=== PATIENT | female | born 1965 | race Caucasian/White ===

== ENCOUNTER 2021-02-05 10:48 | Emergency (ER) | payer OTHER, SELFPAY ==
[~2021-02-05] VITALS: Ht 162.6 cm; Wt 108.9 kg
[2021-02-05 10:48] VITALS: BP_SYST 95
[2021-02-05] MEDS ORDERED: NACL 0.9% 1,000 ML IV ONE (11:15)
[2021-02-05] MEDS ORDERED: NOREPINEPHRINE BITARTRATE 4 MG in NS 246 ML IV ONE (11:30)
[2021-02-05 11:41] LABS: BASOPHILS # (AUTO) 0.1 K/uL (0.0-0.2); BASOPHILS % (AUTO) 0.8 % (0.0-2.0); EOSINOPHILS # (AUTO) 0.3 K/uL (0.0-0.4); EOSINOPHILS % (AUTO) 3.1 % (0.0-4.0); HEMATOCRIT 33.8 % (36-48); HEMOGLOBIN 11.1 g/dL (12.0-16.0); LYMPHOCYTES # (AUTO) 1.5 K/uL (1.0-5.5); LYMPHOCYTES % (AUTO) 16.5 % (20.5-51.5); MEAN CORPUSCULAR HEMOGLOBIN 25 pg (27-31); MEAN CORPUSCULAR HGB CONC 33 % (32-36); MEAN CORPUSCULAR VOLUME 77 fL (79.0-98.0); MONOCYTES # (AUTO) 0.8 K/uL (0.0-1.0); MONOCYTES % (AUTO) 9.6 % (1.7-9.3); NEUTROPHILS # (AUTO) 6.2 K/uL (1.8-7.7); PLATELET COUNT (AUTO) 375 K/uL (130-430); RED CELL DISTRIBUTION WIDTH 18.6 % (9.0-15.0); WHITE BLOOD COUNT (AUTO) 8.8 K/uL (4.8-10.8)
[2021-02-05 11:48] LABS: CALCIUM 9.6 mg/dL (8.4-11.0); CREATININE 0.99 mg/dL (0.55-1.30); POTASSIUM 3.1 mmol/L (3.5-5.1)
[2021-02-05 11:54] LABS: ALBUMIN 2.9 g/dL (3.4-4.8); TOTAL BILIRUBIN 0.8 mg/dL (0.0-1.0)
[2021-02-05 12:36] LABS: BILIRUBIN,URINE NEGATIVE (NEGATIVE); BLOOD, URINE NEGATIVE (NEGATIVE); CLARITY/URINE CLEAR (CLEAR); COLOR,URINE YELLOW (YELLOW); GLUCOSE,URINE NEGATIVE (NEGATIVE); KETONES,URINE NEGATIVE (NEGATIVE); LEUKOCYTE ESTERASE ,URINE NEGATIVE (NEGATIVE); NITRITE, URINE NEGATIVE (NEGATIVE); PH,URINE 6.5 (5.0-8.0); PROTEIN URINE 2+ (NEGATIVE)
[2021-02-05 12:58] LABS: BACTERIA,URINE FEW /HPF (None Seen); RBC,URINE 0-3 /HPF (0-3); WBC,URINE 0-3 /HPF (0-3)
[2021-02-05 12:59] LABS: MUCUS,URINE 1+ /LPF (None Seen)
[2021-02-05] MEDS ORDERED: POTASSIUM CHLORIDE 20 MEQ TAB.PRT.SR PO ONE (14:00)
[2021-02-05] MEDS ORDERED: MAG HYDROX/AL HYDROX/SIMETH 30 ML, LIDOCAINE VISCOUS 2% 15ML (PO) 15 ML, DICYCLOMINE HC... PO ONE ×3 (14:00)
[2021-02-05] MEDS ORDERED: KETOROLAC TROMETHAMINE 30 MG VIAL IVP ONE (14:00)
[2021-02-05] MEDS ORDERED: AMOX500C2 PO (15:04)
[2021-02-05] MEDS ORDERED: BENI20 PO (15:09)
[2021-02-05] MEDS ORDERED: LANS30CA53 PO (15:09)
[2021-02-05] MEDS ORDERED: ROSU10TA2 PO (15:09)
[2021-02-05] MEDS ORDERED: CLAR250T12 PO (15:09)
[2021-02-05] MEDS ORDERED: DEXAMETHASONE SOD PHOSPHATE 10 MG/ML VIAL ONE (16:02)
[2021-02-05 16:09] LABS: INR 1.4 (0.8-1.2)
[2021-02-05] MEDS ORDERED: DEXAMETHASONE SOD PHOSPHATE 10 MG/ML VIAL IVP ONE (16:15)
[2021-02-05 16:20] LABS: AMYLASE 31 U/L (0-100); FREE T4 (FREE THYROXINE) 1.4 ng/dl (0.8-1.5); LACTATE DEHYDROGENASE 246 U/L (81-234); LIPASE 149 U/L (73-393); THYROID STIMULATING HORMONE 2.94 uIu/mL (0.36-3.74)
[2021-02-05 17:07] LABS: C-REACTIVE PROTEIN QUANT 13.9 mg/dL (0-0.5)
[2021-02-05 17:11] LABS: ACETONE, SERUM NEGATIVE (NEGATIVE)
[2021-02-05 18:36] VITALS: BP_SYST 111
== END 2021-02-05 18:36 | disposition short-term general hospital (02) ==
LOC: SED 10:48
DX: G93.89 Other specified disorders of brain (principal); R16.0 Hepatomegaly, not elsewhere classified; Z20.822 Contact with and (suspected) exposure to COVID-19; Z79.899 Other long term (current) drug therapy
CPT/HCPCS: 36415; 70450; 71045; 74176; 76376; 76700; 80053; 81000; 82009; 82150; 83605; 83615; 83690; 84439; 84443; 84484; 84703; 85025; 85610; 85730; 86140; 87426; 93005; 96361; 96374; 96375; 99285; J1100; J1885; J2001; J7030

== ENCOUNTER 2021-05-21 16:24 | Inpatient (IN) | payer OTHER, SELFPAY ==
[~2021-05-21] VITALS: Ht 162.6 cm; Wt 99.8 kg
[~2021-05-21 16:24] MED LIST: BENI20 PO; CLAR250T12 PO; FAMO20TA8 PO; LANS30CA53 PO; NEU300 PO; POLY17PO4 PO; ROSU10TA2 PO; SULF1TAB48 PO; [UNRECOGNIZED DRUG - CODE] PO
[2021-05-21 16:25] VITALS: BP_SYST 127
--- NOTE | 2021-05-21 16:25 | NUR ---
Patient to ER bed 1 to gown for evaluation. Side rails up. Report given to SEAN SALDANA.
[2021-05-21] MEDS ORDERED: NACL 0.9% 2,000 ML IV ONE (16:45)
--- NOTE | 2021-05-21 17:20 | NUR ---
ER at bedside examining patient.
[2021-05-21 17:40] LABS: HEMOGLOBIN 7.8 g/dL (12.0-16.0); RED CELL DISTRIBUTION WIDTH 18.7 % (9.0-15.0)
[2021-05-21 17:48] LABS: HEMATOCRIT 23.4 % (36-48); MEAN CORPUSCULAR HEMOGLOBIN 29 pg (27-31); MEAN CORPUSCULAR HGB CONC 33 % (32-36); MEAN CORPUSCULAR VOLUME 86 fL (79.0-98.0); PLATELET COUNT (AUTO) 188 K/uL (130-430); RED BLOOD CELL COUNT(AUTO) 2.72 MIL/uL (4.2-6.2)
[2021-05-21 17:54] LABS: ACETONE, SERUM NEGATIVE (NEGATIVE)
[2021-05-21 17:58] LABS: INR 1.5 (0.8-1.2); PROTHROMBIN TIME 15.5 SECS (9.5-12.5)
[2021-05-21 17:59] LABS: ANION GAP 6 (5-15); CALCIUM 8.2 mg/dL (8.4-11.0); CHLORIDE 93 mmol/L (98-107); CREATININE 0.43 mg/dL (0.55-1.30); GLUCOSE 147 mg/dL (70-99); POTASSIUM 3.2 mmol/L (3.5-5.1); SODIUM SERUM 122 mmol/L (136-145); UREA NITROGEN, BLOOD 7 mg/dL (8-21)
[2021-05-21 18:01] LABS: WHITE BLOOD COUNT (AUTO) 1.4 K/uL (4.8-10.8)
[2021-05-21 18:03] LABS: BAND % (MANUAL) 0 % (0-6); LYMPHOCYTES % (MANUAL) 54 % (20-46)
[2021-05-21 18:04] LABS: BASOPHILS % (MANUAL) 0 % (0-2); EOSINOPHILS % (MANUAL) 2 % (0-7); MONOCYTES % (MANUAL) 19 % (0-11)
[2021-05-21 18:05] LABS: ALANINE AMINOTRANSFERASE 11 U/L (12-78); ALBUMIN 2.1 g/dL (3.4-4.8); ASPARTATE AMINOTRANSFERASE 9 U/L (10-37); TOTAL BILIRUBIN 0.8 mg/dL (0.0-1.0)
[2021-05-21] MEDS ORDERED: NACL 0.9% 1,000 ML IV ONE (18:30)
[2021-05-21] MEDS ORDERED: PIPERACILLIN/TAZOBACTAM 3.375 GM/VIAL (ZOSYN) IV ONE (19:38)
[2021-05-21] MEDS: NACL 0.9% 1,000 ML IV SCH (19:52)
[2021-05-21] MEDS: PIPERACILLIN/TAZO 3.375/DEX-IS 50 ML IV SCH (19:52)
[2021-05-21] MEDS ORDERED: VANCOMYCIN HCL 1 GM/NS PREMIX 250 ML IV ONE (20:45)
[2021-05-21] MEDS ORDERED: VANCOMYCIN HCL 1000 MG/VIAL IV ONE (20:49)
[2021-05-21 21:12] VITALS: BP_SYST 109
--- NOTE | 2021-05-21 21:12 | NUR ---
ADMISSION NOTE Received patient from ER via frederic, received report from SEAN SALDANA. Patient admitted with diagnosis of HYPOTENSION/ R/O SEPSIS. Patient oriented to hospital routine, call light, toileting and safety-patient verbalized understanding.
--- NOTE | 2021-05-21 21:20 | NUR ---
REPORT Transfer to TELE via ACLS protocol. Licensed nurse present. IV present no signs or symptoms of infiltration. Report given to RN using SBAR reporting. All safety precautions enforced.
--- NOTE | 2021-05-21 21:25 | NUR ---
ROUNDS PATIENT IN BED, AWAKE, ALERT, ORIENTED, NOT IN DISTRESS, VITALS STABLE. ADMISSION ASSESSMENT OLIVEROS AND DOCUMENED. SEE FLOWSHEET. NEEDS ATTENDED TO. SAFETY MEASURES IN PLACED. CALL LIGHT PLACED WITHIN REACH.
[2021-05-22] MEDS ORDERED: ACETAMINOPHEN 325 MG TABLET PO PRN
[2021-05-22 00:55] VITALS: BP_SYST 101
[2021-05-22] MEDS ORDERED: PIPERACILLIN/TAZOBACTAM 3.375 GM/VIAL (ZOSYN) IV ONE (04:10)
--- NOTE | 2021-05-22 05:09 | NUR ---
ONCOLOGY CONSULT Consult for Dr. Garcia was called, RE: Colon CA w/ mets SW Gene
--- NOTE | 2021-05-22 05:14 | NUR ---
ID CONSULT Consult for Dr. Qamar Castillo was called, RE r/o Sepsis ALTON Nur Faxed face sheet: [phone]
--- NOTE | 2021-05-22 05:21 | NUR ---
Nutrition Update Sanjiv Scale 16 noted. Pt admitted for Hypotension, R/O sepsis, Colon cancer w/ mets Diet: Regular BMI: 37.8 kg/m2 RD to follow per nutrition care standards.
[2021-05-22] MEDS: PIPERACILLIN/TAZO 3.375/DEX-IS 50 ML IV SCH ×3 (05:46→21:19)
[2021-05-22] MEDS: NACL 0.9% 1,000 ML IV SCH ×3 (05:46→14:11)
[2021-05-22 06:41] LABS: BASOPHILS % (AUTO) 0.8 % (0.0-2.0); EOSINOPHILS % (AUTO) 1.5 % (0.0-4.0); LYMPHOCYTES # (AUTO) 0.5 K/uL (1.0-5.5); LYMPHOCYTES % (AUTO) 40.7 % (20.5-51.5); MEAN CORPUSCULAR HEMOGLOBIN 29 pg (27-31); MEAN CORPUSCULAR HGB CONC 34 % (32-36); MEAN CORPUSCULAR VOLUME 85 fL (79.0-98.0); MONOCYTES # (AUTO) 0.3 K/uL (0.0-1.0); MONOCYTES % (AUTO) 25.2 % (1.7-9.3); NEUTROPHILS % (AUTO) 31.8 % (40.0-70.0); PLATELET COUNT (AUTO) 146 K/uL (130-430); RED BLOOD CELL COUNT(AUTO) 2.09 MIL/uL (4.2-6.2); RED CELL DISTRIBUTION WIDTH 18.8 % (9.0-15.0)
--- NOTE | 2021-05-22 06:48 | NUR ---
CLOSING NOTES PATIENT AWAKE, NO COMPLAINTS AT THIS TIME, VITALS STABLE. ALL NEEDS ATTENDED TO. CALL LIGHT PLACED WITHIN REACH.
--- NOTE | 2021-05-22 07:49 | NUR ---
OPENING NOTE Received report from security shift manager RN. Patient is alert and resting in bed. Patient on 2L NC and tolerating well. Susannah-cath running NS @ 150 mL/hr. Bed locked in lowest position and call light is within reach. Will continue to monitor.
[2021-05-22 08:00] VITALS: BP_SYST 105
[2021-05-22 08:26] LABS: ALBUMIN 1.7 g/dL (3.4-4.8); CREATININE 0.27 mg/dL (0.55-1.30); THYROID STIMULATING HORMONE 1.55 uIu/mL (0.36-3.74); TOTAL BILIRUBIN 0.7 mg/dL (0.0-1.0)
[2021-05-22 08:39] LABS: POTASSIUM 2.5 mmol/L (3.5-5.1)
[2021-05-22 09:31] LABS: NEUTROPHILS # (AUTO) 0.4 K/uL (1.8-7.7)
[2021-05-22 09:36] LABS: HEMATOCRIT 17.7 % (36-48); WHITE BLOOD COUNT (AUTO) 1.2 K/uL (4.8-10.8)
--- NOTE | 2021-05-22 10:00 | NUR ---
Spoke with Dr. Miranda Regarding K 2.5 and trending low platelets. Orders to put patient on reverse/ neutropenic isolation and K replacement. Noted and will carry out.
[2021-05-22] MEDS: KCL 20 mEq in NS 1000 mL 1,000 ML IV SCH ×2 (10:19→21:20)
--- NOTE | 2021-05-22 10:28 | NUR ---
CRITICAL LAB RESULT WAS CALLED TO DR ALLAN. DIANA ASKED TO FAX THE CRITICAL LAB RESULT TO HIS OFFICE ([phone]).
--- NOTE | 2021-05-22 10:33 | NUR ---
Paged Dr. Miranda twice at 1000 and 1025 regarding patient's Hgb of 6.0 and Hct 17.7. Awaiting call back. Take Up Supervisor requested labs be faxed to Dr. Miranda's office. Patient's sister, Natividad, called. Patient consented to give information to sister. Will continue to monitor.
--- NOTE | 2021-05-22 11:31 | NUR ---
3rd page for Dr. Miranda Paged Dr. Miranda again at 1120 for critical labs of Hgb and Hct. Awaiting call back. Stool sample taken to lab. Fluids with K running as ordered. Will continue to monitor.
[2021-05-22 11:49] VITALS: BP_SYST 130
--- NOTE | 2021-05-22 12:45 | NUR ---
CRITICAL LAB: Laboratory called with critical lab value hgb 6.0 and hct 17.7. Medical record number and patient name verified. Read back of values done. Dr. Henning notified of value. Orders for 2 units of PRBCs. Consent signed by patient. Noted and will carry out.
[2021-05-22 13:52] LABS: BILIRUBIN,URINE NEGATIVE (NEGATIVE); BLOOD, URINE NEGATIVE (NEGATIVE); CLARITY/URINE TURBID (CLEAR); COLOR,URINE YELLOW (YELLOW); GLUCOSE,URINE NEGATIVE (NEGATIVE); KETONES,URINE NEGATIVE (NEGATIVE); LEUKOCYTE ESTERASE ,URINE NEGATIVE (NEGATIVE); NITRITE, URINE POSITIVE (NEGATIVE); PROTEIN URINE NEGATIVE (NEGATIVE); UROBILINOGEN,URINE 0.2 (0.2-1.0)
[2021-05-22 14:06] LABS: BACTERIA,URINE MODERATE /HPF (None Seen); RBC,URINE 0-3 /HPF (0-3); WBC,URINE 0-3 /HPF (0-3)
[2021-05-22 15:30] VITALS: BP_SYST 101
--- NOTE | 2021-05-22 15:36 | NUR ---
Discharge Planning: DCP faxed pt referral to [facility] [id number] per CM request.
[2021-05-22 16:00] VITALS: BP_SYST 105
--- NOTE | 2021-05-22 16:10 | NUR ---
BT INITIATION: Consent signed per patient agreeing to administration of blood. Blood has been type and crossmatched. Blood sent from blood bank. Information on unit of blood checked against patient wristband at bedside by two nurses. All information matches. Patient or responsible alliance party informed of potential complications associated with blood transfusion. Informed of possible transfusion reaction symptoms. Aware of need to notify nurse at once of itching, shortness of breath, flushing, feeling of impending doom, or other symptoms not previously present. Vital signs taken within 5 minutes prior to initiation of transfusion. RN will remain with patient for first 15 minutes of transfusion at which time vital signs will be re-assessed.
--- NOTE | 2021-05-22 16:35 | NUR ---
Referral to [facility] [place], at patient/family request. All information requested sent to [phone].
[2021-05-22] MEDS: TBO-FILGRASTIM 480 MCG/0.8 ML SYRINGE SUBCUT SCH (16:37)
[2021-05-22] MEDS ORDERED: FILGRASTIM Non-Formulary 0.48 MG/VIAL SUBCUT SCH (17:00)
--- NOTE | 2021-05-22 18:30 | NUR ---
CLOSING NOTE Patient currently resting in bed. Family at bedside. Patient is currently on 2 L NC. Right chest Port-a-Cath in place and administering blood as ordered. Vital signs are stable. Bed locked in lowest position. Call light within reach. Reverse isolation precautions remain in place. Will endorse to overnight houseperson RN.
--- NOTE | 2021-05-22 19:30 | NUR ---
Opening note Received report from day shift. Pt is lying in bed. No s/s of respiratory distress. Breathing even and unlabored. IV site is intact and patent with fluids running at ordered rate. Fall and safety precautions are in place with bed in lowest position, bed alarm on, and call light within reach
[2021-05-22 20:00] VITALS: BP_SYST 106
--- NOTE | 2021-05-22 23:44 | NUR ---
Pt receiving 1 unit PRBC, vital signs stable. Pt tolerating well
[2021-05-23 01:00] VITALS: BP_SYST 98
[2021-05-23] MEDS ORDERED: AZITHROMYCIN 500 MG in NS 250 ML IV ONE (03:30)
[2021-05-23] MEDS ORDERED: AZITHROMYCIN 500 MG/VIAL (ZITHROMAX) IV ONE (05:32)
[2021-05-23] MEDS ORDERED: CEFEPIME 2 GM/VIAL (MAXIPIME) ONE (05:32)
[2021-05-23] MEDS: CEFEPIME 2 GM in D5W 100 ML IV SCH ×3 (05:43→19:47)
[2021-05-23] MEDS: KCL 20 mEq in NS 1000 mL 1,000 ML IV SCH ×2 (05:44→14:37)
--- NOTE | 2021-05-23 06:44 | NUR ---
Closing note Pt is lying in bed. No s/s of respiratory distress. Breathing even and unlabored. IV site is intact and patent with fluids running at ordered rate. Fall and safety precautions are in place with bed in lowest position, bed alarm on, and call light within reach. All needs met throughout shift
[2021-05-23 07:07] LABS: BASOPHILS % (AUTO) 0.4 % (0.0-2.0); EOSINOPHILS % (AUTO) 2.4 % (0.0-4.0); HEMATOCRIT 22.8 % (36-48); HEMOGLOBIN 7.9 g/dL (12.0-16.0); LYMPHOCYTES # (AUTO) 0.4 K/uL (1.0-5.5); LYMPHOCYTES % (AUTO) 20.5 % (20.5-51.5); MEAN CORPUSCULAR HEMOGLOBIN 29 pg (27-31); MEAN CORPUSCULAR HGB CONC 35 % (32-36); MEAN CORPUSCULAR VOLUME 85 fL (79.0-98.0); MONOCYTES # (AUTO) 0.3 K/uL (0.0-1.0); MONOCYTES % (AUTO) 18.2 % (1.7-9.3); NEUTROPHILS # (AUTO) 1.1 K/uL (1.8-7.7); PLATELET COUNT (AUTO) 132 K/uL (130-430); RED BLOOD CELL COUNT(AUTO) 2.69 MIL/uL (4.2-6.2); RED CELL DISTRIBUTION WIDTH 16.8 % (9.0-15.0)
[2021-05-23 07:40] LABS: ALANINE AMINOTRANSFERASE 10 U/L (12-78); ALBUMIN 1.6 g/dL (3.4-4.8); ANION GAP 7 (5-15); ASPARTATE AMINOTRANSFERASE 18 U/L (10-37); CALCIUM 7.4 mg/dL (8.4-11.0); CHLORIDE 102 mmol/L (98-107); GLUCOSE 92 mg/dL (70-99); SODIUM SERUM 134 mmol/L (136-145); TOTAL BILIRUBIN 0.7 mg/dL (0.0-1.0); UREA NITROGEN, BLOOD 3 mg/dL (8-21)
[2021-05-23 08:00] VITALS: BP_SYST 122
[2021-05-23 08:15] LABS: CREATININE < 0.20 mg/dL (0.55-1.30); GFR AFRICAN AMERICAN 471 mL/min (>90); POTASSIUM 2.3 mmol/L (3.5-5.1)
[2021-05-23] MEDS ORDERED: POTASSIUM CHLORIDE 20 MEQ in NS 250 ML IV ONE (08:30)
[2021-05-23] MEDS ORDERED: POTASSIUM CHLORIDE 20 MEQ TAB.PRT.SR PO ONE (08:30)
--- NOTE | 2021-05-23 08:32 | NUR ---
CONSULTATION PAGED REASON FOR CONSULTATION::HEMROIDS WAS CONSULT CALLED?Y PERSON WHO WAS NOTIFIED: CELESTINA CONSULTING PHYSICIAN:BECK DASILVA ROLL FORGER SPECIALTY:SURGEON ROLL FORGER PHONE NUMBER:[phone] REQUESTING PHYSICIAN:VENU CALDERON
[2021-05-23 08:35] LABS: TOTAL IRON BIND. CAPACITY 126 ug/dL (250-450)
[2021-05-23 09:08] LABS: WHITE BLOOD COUNT (AUTO) 1.8 K/uL (4.8-10.8)
--- NOTE | 2021-05-23 09:40 | NUR ---
ORDERS SPOKE WITH DR Qamar SALAZAR, NEW ORDERS RECEIVED
--- NOTE | 2021-05-23 11:32 | NUR ---
Dietitian Recommendations *Recommend continue regular diet. Provide snacks in between meals. *Declined nutritional supplement drink. *Encourage PO intake. *Consider supplemental nutrition support Please see Nutritional Assessment for details. MARIE MERCADO
[2021-05-23 12:00] VITALS: BP_SYST 115
--- NOTE | 2021-05-23 12:39 | NUR ---
Spoke w/ Isma at [facility] [place] [facility]unlikely there will be a bed available today for the patient. They will notify us if bed is available. [phone]. Spoke w/ ,Jim, he was given an up date on the bed status for today.
--- NOTE | 2021-05-23 12:57 | NUR ---
Discharge Planning: DCP arrange transport with [facility] [phone] Will Call and took patient packet to nurse station.
[2021-05-23 13:48] LABS: NEUTROPHILS % (AUTO) 58.5 % (40.0-70.0)
--- NOTE | 2021-05-23 14:00 | NUR ---
Note Pt resting in bed most of shift - pt does sit up in bed to eat her meals. Appetite poor at this time. Pt's Jim at bedside most of shift. Pt went to CT dept via bed at 0930am and back at 10am - for CT abdomen/pelvis. Dr Tabares called back at 0845am and update on consult was given. Pt given frequent hygiene care for urine/stool incontinence. PCR - Covid test done and sent to lab at 1015am. Pt kept in PUI isolation (family notified). Pt already on Reverse isolation. Call light within reach. Tele unit attached and intact all shift. Pt checked on q1' and PRN for needs and care. Pt's bed in low position and bed alarm on all shift.
[2021-05-23 16:00] VITALS: BP_SYST 118
[2021-05-23] MEDS ORDERED: PHENYLEPH/MINERAL OIL/PETROLAT 57 GM OINT.APPL TP PRN (16:30)
--- NOTE | 2021-05-23 16:36 | NUR ---
CONSULTATION PAGED REASON FOR CONSULTATION:HEMMRHOIDS WAS CONSULT CALLED?Y PERSON WHO WAS NOTIFIED: JACOBO CONSULTING PHYSICIAN:SUZY MANN POLEYARD SUPERVISOR SPECIALTY:GI POLEYARD SUPERVISOR PHONE NUMBER:[phone] REQUESTING PHYSICIAN:JOHN MCLEAN NP
[2021-05-23] MEDS: TBO-FILGRASTIM 480 MCG/0.8 ML SYRINGE SUBCUT SCH (16:53)
--- NOTE | 2021-05-23 18:45 | NUR ---
Note Pt's Jim was at bedside most of shift. Pt was checked on q1' and PRN all shift for needs and care. Pt's bed in low position and bed alarm on all shift. Pt was given frequent hygiene care and bed bath for urine and stool incontinence. Pt has had O2 at 2L/nc all shift. Pt has had very poor appetite all shift. Pt was maintained with safety and isolation (reverse isolation and PUI isolation) all shift. Call light within reach.
--- NOTE | 2021-05-23 19:30 | NUR ---
Opening note Received report from day shift. Pt is lying in bed. No s/s of respiratory distress. Breathing even and unlabored, on 2L nasal cannula tolerating well. Permacath dressing is clean and intact. Fall and safety precautions are in place with bed in lowest position, bed alarm on, and call light within reach
[2021-05-23 20:00] VITALS: BP_SYST 102
--- NOTE | 2021-05-24 00:16 | NUR ---
Rounds Pt is awake lying in bed. No s/s of acute distress. No needs at this time
[2021-05-24 00:49] VITALS: BP_SYST 99
[2021-05-24] MEDS: CEFEPIME 2 GM in D5W 100 ML IV SCH ×3 (03:13→20:05)
[2021-05-24 06:06] LABS: FOLATE (FOLIC ACID) 3.9 ng/mL (>3.0)
--- NOTE | 2021-05-24 06:44 | NUR ---
Closing note Pt lying in bed. No s/s of respiratory distress. Breathing even and unlabored. Permacath dressing is dry and intact, fluids running at ordered rate. Fall and safety precautions are in place with bed in lowest position, bed alarm on, and call light within reach. All needs met throughout shift
[2021-05-24 07:00] LABS: BASOPHILS % (AUTO) 0.8 % (0.0-2.0); EOSINOPHILS % (AUTO) 1.4 % (0.0-4.0); HEMATOCRIT 22.1 % (36-48); HEMOGLOBIN 7.6 g/dL (12.0-16.0); LYMPHOCYTES # (AUTO) 0.5 K/uL (1.0-5.5); LYMPHOCYTES % (AUTO) 18.7 % (20.5-51.5); MEAN CORPUSCULAR HEMOGLOBIN 29 pg (27-31); MEAN CORPUSCULAR HGB CONC 34 % (32-36); MEAN CORPUSCULAR VOLUME 84 fL (79.0-98.0); MONOCYTES # (AUTO) 0.5 K/uL (0.0-1.0); MONOCYTES % (AUTO) 16.7 % (1.7-9.3); NEUTROPHILS # (AUTO) 1.8 K/uL (1.8-7.7); NEUTROPHILS % (AUTO) 62.4 % (40.0-70.0); PLATELET COUNT (AUTO) 152 K/uL (130-430); RED BLOOD CELL COUNT(AUTO) 2.63 MIL/uL (4.2-6.2); WHITE BLOOD COUNT (AUTO) 2.9 K/uL (4.8-10.8)
[2021-05-24 07:04] LABS: ANION GAP 7 (5-15); CALCIUM 7.5 mg/dL (8.4-11.0); CHLORIDE 106 mmol/L (98-107); GLUCOSE 77 mg/dL (70-99); POTASSIUM 3.1 mmol/L (3.5-5.1); SODIUM SERUM 136 mmol/L (136-145); UREA NITROGEN, BLOOD 2 mg/dL (8-21)
[2021-05-24 08:00] VITALS: BP_SYST 105
[2021-05-24 08:13] LABS: CREATININE < 0.20 mg/dL (0.55-1.30); GFR AFRICAN AMERICAN 471 mL/min (>90)
[2021-05-24] MEDS ORDERED: PHENYLEPH/MINERAL OIL/PETROLAT 57 GM OINT.APPL TP SCH (10:15)
[2021-05-24 12:00] VITALS: BP_SYST 119
[2021-05-24] MEDS: AZITHROMYCIN 250 MG in NS 250 ML IV SCH (12:11)
--- NOTE | 2021-05-24 14:00 | NUR ---
0730AM: PATIENT IS RESTING IN BED QUIETLY. NO ADDITIONAL DISTRESS NOTED. BED IN LOW AND LOCK POSITION. ABLE TO MAKE NEEDS KNOWN. AAOX4. STABLE CONDITION AT THIS TIME. WILL CONT TO MONITOR. 0800AM: EXPLAINED PLAN OF CARE AND PATIENT VERBALIZED UNDERSTANDING. PATIENT IS EATING HER BREAKFAST. WILL CONT TO MONITOR. 0830AM: PERICARE PERFORMED AND LINEN CHANGE. APPLIED SKIN BARRIER CREAM TO COCCYX TO PREVENT MOISTURE DERMATITIS. 1000AM: AT THE BEDSIDE. PERICARE PERFORMED. APPLIED SKIN BARRIER CREAM TO COCCYX TO PREVENT MOISTURE DERMATITIS. 1030AM: PATIENT DOING HER OWN HYGIENE CARE ASSISTED BY . STABLE CONDITION AT THIS TIME. 1200PM: PATIENT IS RESTING IN BED TRYING TO EAT HER LUNCH. AT THE BEDSIDE. NO ADDITIONAL DISTRESS NOTED. 1400: PATIENT IS RESTING IN BED WATCHING THE NEWS. AT THE BEDSIDE. NO CHANGE FROM PREVIOUS ASSESSMENT. WILL CONT TO MONITOR.
[2021-05-24] MEDS ORDERED: KCL 40 mEq in 100 mL (PREMIX) 100 ML IV ONE (14:15)
[2021-05-24] MEDS ORDERED: POTASSIUM CHLORIDE 40 MEQ in NS 250 ML IV ONE (14:30)
[2021-05-24 14:42] LABS: FERRITIN 3317 ng/mL (15-150)
[2021-05-24] MEDS: WITCH HAZEL LEAF 1 MED.PAD MED.PAD TP SCH ×3 (16:00→20:06)
[2021-05-24 16:20] VITALS: BP_SYST 110
[2021-05-24] MEDS: TBO-FILGRASTIM 480 MCG/0.8 ML SYRINGE SUBCUT SCH (17:30)
--- NOTE | 2021-05-24 18:00 | NUR ---
1600: PATIENT IS RESTING IN BED TRYING TO TAKE A NAP. NO ADDITIONAL DISTRESS NOTED. 1630: CARL CARE PERFORMED. APPLIED SKIN BARRIER CREAM. 171: CARL CARE PERFORMED AGAIN. APPLIED SKIN BARRIER CREAM 173: C/O ABD AND RECTAL CRAMPING PAIN. HEMORRHOID CREAM/PAD HAS BEEN APPLIED AND ENCOURAGE PATIENT TO TURN Q2HRS. 1800: PATIENT IS RESTING IN BED EATING HER DINNER. STILL AT THE BEDSIDE. WILL CONT TO MONITOR. Addendum: 05/24/21 at 1901 by [employer] medical office professional instructor 173: PAGED AND LEFT A MSG TO DR MCDUFFIE REGARDING PATIENT C/O ABD/RECTAL PAIN AND USUALLY TAKE 1GM OF TYLENOL. AT THIS TIME. PRN MEDS ONLY INCLUDE TYLENOL 650MG PO. AWAITING FOR CALL BACK.
--- NOTE | 2021-05-24 18:59 | NUR ---
PATIENT RESTING IN BED TRYING TO FINISH HER DINNER. STILL AT THE BEDSIDE. NO ADDITIONAL DISTRESS NOTED. STABLE CONDITION AT THIS TIME. WILL CONT TO MONITOR.
--- NOTE | 2021-05-24 19:16 | NUR ---
OPENING NOTES PATIENT RESTING, NO SIGNS OF DISTRESS NOTED. CALL LIGHT WITHIN REACH, BED ALARM ON, BED AT LOWEST POSITION, BED LOCKED. FALL, RESPIRATORY, ISOLATION, ASPIRATION, AND SAFETY PRECAUTIONS IN PLACE. DISCUSSED PLAN OF CARE WITH PATIENT. WILL CONTINUE TO MONITOR.
[2021-05-24 20:00] VITALS: BP_SYST 118
[2021-05-24] MEDS: KCL 20 mEq in NS 1000 mL 1,000 ML IV SCH ×2 (20:06→23:00)
[2021-05-25 01:36] VITALS: BP_SYST 117
--- NOTE | 2021-05-25 02:11 | NUR ---
PATIENT PROVIDED WARM BLANKETS AND PERINEAL CARE. NO SIGNS OF RESPIRATORY DISTRESS WHEN TURNING. WILL CONTINUE TO MONITOR.
[2021-05-25] MEDS: CEFEPIME 2 GM in D5W 100 ML IV SCH ×3 (03:05→21:32)
--- NOTE | 2021-05-25 06:15 | NUR ---
CLOSING NOTES PATIENT RESTING, NO SIGNS OF DISTRESS NOTED. CALL LIGHT WITHIN REACH, BED ALARM ON, BED AT LOWEST POSITION, BED LOCKED. FALL, RESPIRATORY, ISOLATION, ASPIRATION, AND SAFETY PRECAUTIONS IN PLACE THROUGHOUT SHIFT. ALL NEEDS MET THROUGHOUT SHIFT. WILL ENDORSE CARE TO ONCOMING SHIFT.
[2021-05-25 08:00] VITALS: BP_SYST 127
--- NOTE | 2021-05-25 08:00 | NUR ---
OPENING NOTES PATIENT RESTING IN BED LAYING FLAT WITH KNEES BENT, NO SIGNS OF DISTRESS NOTED. CALL LIGHT WITHIN REACH, BED ALARM ON, BED AT LOWEST POSITION, BED LOCKED. FALL, RESPIRATORY, ISOLATION, ASPIRATION, AND SAFETY PRECAUTIONS IN PLACE. WILL CONTINUE TO MONITOR.
[2021-05-25] MEDS: WITCH HAZEL LEAF 1 MED.PAD MED.PAD TP SCH ×3 (08:12→21:32)
[2021-05-25] MEDS: KCL 20 mEq in NS 1000 mL 1,000 ML IV SCH ×2 (08:12→19:30)
[2021-05-25] MEDS: AZITHROMYCIN 250 MG in NS 250 ML IV SCH (08:12)
--- NOTE | 2021-05-25 12:00 | NUR ---
RN rounds: Pt lying in bed sleeping and at bedside. No s/s of respiratory distress. Breathing even and unlabored. Permacath dressing is dry and intact, fluids running at ordered rate. Fall and safety precautions are in place with bed in lowest position, bed alarm on, and call light within reach. Will continue to monitor.
--- NOTE | 2021-05-25 12:04 | NUR ---
Jasmin w/ Isma at [facility]-case is under review-no acceptance yet [phone]
[2021-05-25 13:02] VITALS: BP_SYST 108
--- NOTE | 2021-05-25 14:40 | NUR ---
Discharge Planning: DCP faxed pt updated clinicals to [facility] [id number] per CM request.
--- NOTE | 2021-05-25 16:00 | NUR ---
PAGED: CALLED MD FOR RECONCILIATION BUT DID NOT RETURN THE CALL. Addendum: 05/25/21 at 1926 by Britta Zheng RN CORRECTED ABOVE NOTES: NOT INTENDED FOR THE ABOVE PATIENT.
[2021-05-25 17:44] VITALS: BP_SYST 113
--- NOTE | 2021-05-25 18:46 | NUR ---
CLOSING NOTES PATIENT RESTING, AT BEDSIDE. NO SIGNS OF DISTRESS NOTED. CALL LIGHT WITHIN REACH, BED ALARM ON, BED AT LOWEST POSITION, BED LOCKED. FALL, RESPIRATORY, ISOLATION, ASPIRATION, AND SAFETY PRECAUTIONS IN PLACE THROUGHOUT SHIFT. DC PLAN- STILL WAITING FOR PCR RESULTS. ALL NEEDS MET THROUGHOUT SHIFT. WILL ENDORSE CARE TO ONCOMING SHIFT
[2021-05-25 19:00] VITALS: BP_SYST 109
--- NOTE | 2021-05-25 19:15 | NUR ---
change of shift.pt.presents isolation status,neutropenic/droplet:covid19:pui status.pt.presents cancer hx.recent chemo therapy x2 wks p/t admission sdch.pt.presents port/cath location rt.svc.intact iv fluids infusing.pt.presents general weakness bedrest. pt.capable to reposition self.call light/telephone w/in access of the pt.
[2021-05-25 20:00] VITALS: BP_SYST 109
--- NOTE | 2021-05-25 20:00 | NUR ---
pt.assessed.v/s assessed values wnl.no c/o pain,nausea.i have apprised the pt.that snacks/beverages are available w/in the shift.no requests posited@this hour.port/cath dsg intact.iv fluids infusing.pt.assessed for cleanliness.pt.repositioned. general status stable.respiratory status stable;unlabored@room air.call light/telephone placed w/in access of the pt.
--- NOTE | 2021-05-25 21:00 | NUR ---
2100p medications administered.pt.capable to ingest the po medications w/out difficulty.no c/o pain,no requests posited@this hour.pt.repositioned.call light/telephone w/in access of the pt.
--- NOTE | 2021-05-25 22:00 | NUR ---
pt.assessed.pt.requested cleaning;provided.no c/o pain,nausea.pt.repositioned.no requests posited@this hour.port/cath intact iv fluids infusing.call light/telephone placed w/in access of the pt.
[2021-05-26] VITALS (8 sets, daily range): BP systolic 110–140
--- NOTE | 2021-05-26 | NUR ---
pt.assessed.v/s assessed values wnl.no c/o pain,nausea.no requests posited@this hour.pt.assessed for cleanliness.pt.repositioned.port/cath intact iv fluids infusing.call light/telephone placed w/in access of the pt.
--- NOTE | 2021-05-26 02:00 | NUR ---
pt.assessed.pt.required cleaning;provides.no c/o pain,nausea.no additional requests posited@this hour.call light/telephone placed w/in access of the pt.
--- NOTE | 2021-05-26 03:30 | NUR ---
maxipime abx ivpb administered @this hour.
[2021-05-26] MEDS: CEFEPIME 2 GM in D5W 100 ML IV SCH ×3 (03:35→18:23)
--- NOTE | 2021-05-26 04:00 | NUR ---
pt.assessed.pt.presents quiescent affect;calm,somnolent.per flacc pain mgx pt.absent facial grimaces/body posturing. pt.capable to reposition self.call light/telephone w/in access of the pt.
[2021-05-26] MEDS: KCL 20 mEq in NS 1000 mL 1,000 ML IV SCH ×2 (04:19→15:00)
--- NOTE | 2021-05-26 06:10 | NUR ---
pt.assessed.pt.presents quiescent affect;calm,resting.no c/o pain,nausea.no requests posited@this hour.port/cath intact iv fluids infusing.pt.assessed for cleanliness.pt.capable to reposition self.call light/telephone placed w/in access of the pt.
[2021-05-26] MEDS: WITCH HAZEL LEAF 1 MED.PAD MED.PAD TP SCH ×3 (09:00→22:18)
[2021-05-26] MEDS ORDERED: LIDOCAINE TOPICAL OINT 5%, 35 GM TP SCH (09:00)
--- NOTE | 2021-05-26 09:00 | NUR ---
0900: Pt resting in bed A+Ox4 at 077. Pt denies pain. Portacath noted to R chest- infusing NS+KCL20@100ml/hr. CSMW- pt pale. No headache, dizziness, chest pain, numbness, tingling, edema. Lungs clear. No SOB. Dry cough noted. RA 97%. BS x4. good appetite. LBM Nov - inc. Voiding- inc. No N+V. No skin concerns. Not OOB. VSS. Will continue to monitor.
[2021-05-26 09:33] LABS: BASOPHILS % (AUTO) 0.4 % (0.0-2.0); EOSINOPHILS % (AUTO) 0.5 % (0.0-4.0); HEMATOCRIT 26.7 % (36-48); HEMOGLOBIN 8.9 g/dL (12.0-16.0); LYMPHOCYTES # (AUTO) 0.6 K/uL (1.0-5.5); LYMPHOCYTES % (AUTO) 12.2 % (20.5-51.5); MEAN CORPUSCULAR HEMOGLOBIN 28 pg (27-31); MEAN CORPUSCULAR HGB CONC 33 % (32-36); MEAN CORPUSCULAR VOLUME 85 fL (79.0-98.0); MONOCYTES # (AUTO) 0.8 K/uL (0.0-1.0); MONOCYTES % (AUTO) 16.5 % (1.7-9.3); NEUTROPHILS # (AUTO) 3.4 K/uL (1.8-7.7); NEUTROPHILS % (AUTO) 70.4 % (40.0-70.0); PLATELET COUNT (AUTO) 165 K/uL (130-430); RED BLOOD CELL COUNT(AUTO) 3.13 MIL/uL (4.2-6.2); RED CELL DISTRIBUTION WIDTH 17.2 % (9.0-15.0); WHITE BLOOD COUNT (AUTO) 4.8 K/uL (4.8-10.8)
[2021-05-26] MEDS ORDERED: PHENYLEPH/MINERAL OIL/PETROLAT 57 GM OINT.APPL TP SCH (09:45)
[2021-05-26 09:56] LABS: CALCIUM 8.1 mg/dL (8.4-11.0); CREATININE 0.24 mg/dL (0.55-1.30); POTASSIUM 3.1 mmol/L (3.5-5.1)
--- NOTE | 2021-05-26 10:40 | NUR ---
Left message for [facility] transfer [facility] regarding status of transfer to ICU for oncology care by Dr Hedy Jorgensen.
[2021-05-26] MEDS: AZITHROMYCIN 250 MG in NS 250 ML IV SCH (11:43)
--- NOTE | 2021-05-26 16:15 | NUR ---
Spoke w/ Addi at [facility]faxed clinical information requested-notified ,Jim, of possible transfer to [facility] when bed is available.
--- NOTE | 2021-05-26 17:59 | NUR ---
Pt resting in bed. at bedside. No voiced concerns. Awaiting for bed at [facility]. Will continue to monitor.
--- NOTE | 2021-05-27 | NUR ---
At 2230HR - Offered bedside care to patient. Per patient she is clean and no need to be checked at this time. At 0000HR - Patient is asleep but easily arousable. When patient woke up, offered to be repositioned & changed. Per Patient, she is okay right now. Educated risks of refusal & benefits of changing & repositioning but patient still refused. Respected rights. At 0420HR - Patient requested to wait for her to change her diaper later today. Informed patient that we are here to help her too. Offered to be repositioned & changed. Per Patient, she wants to wait for her or sister. Educated risks of refusal & benefits of changing & repositioning but patient still refused. Felicia ARREDONDO as witness. Will continue to offer.
[2021-05-27 01:24] VITALS: BP_SYST 113
[2021-05-27] MEDS: CEFEPIME 2 GM in D5W 100 ML IV SCH ×3 (03:10→20:24)
[2021-05-27] MEDS: KCL 20 mEq in NS 1000 mL 1,000 ML IV SCH ×3 (04:30→20:24)
--- NOTE | 2021-05-27 04:48 | NUR ---
Called [facility] & spoke with Lupe (Nurse from Transfer center); as per her advice, they are still reviewing patient's case prior to transfer. Also they will coordinate with their Internal Medicine Doctor regarding the case and will have doctors communicate about patient's plan of care. They will update the nursing department for patient's placement.
--- NOTE | 2021-05-27 07:32 | NUR ---
OPENING NOTE Received report from cork sorter RN. Patient currently resting in bed and respirations remain even and nonlabored on room air. Right Port-a-Cath remains patent and running KCL 20 NS @ 100 mL/hr. Bed in lowest position and call light is within reach. Will continue to monitor.
[2021-05-27 08:00] VITALS: BP_SYST 131
[2021-05-27] MEDS: WITCH HAZEL LEAF 1 MED.PAD MED.PAD TP SCH ×3 (09:00→20:25)
[2021-05-27 09:16] LABS: BASOPHILS % (AUTO) 0.3 % (0.0-2.0); EOSINOPHILS % (AUTO) 0.5 % (0.0-4.0); HEMATOCRIT 24.9 % (36-48); HEMOGLOBIN 8.4 g/dL (12.0-16.0); LYMPHOCYTES # (AUTO) 0.7 K/uL (1.0-5.5); LYMPHOCYTES % (AUTO) 20.1 % (20.5-51.5); MEAN CORPUSCULAR HEMOGLOBIN 28 pg (27-31); MEAN CORPUSCULAR HGB CONC 34 % (32-36); MEAN CORPUSCULAR VOLUME 84 fL (79.0-98.0); MONOCYTES # (AUTO) 0.8 K/uL (0.0-1.0); MONOCYTES % (AUTO) 22.5 % (1.7-9.3); NEUTROPHILS # (AUTO) 1.9 K/uL (1.8-7.7); NEUTROPHILS % (AUTO) 56.6 % (40.0-70.0); PLATELET COUNT (AUTO) 155 K/uL (130-430); RED BLOOD CELL COUNT(AUTO) 2.95 MIL/uL (4.2-6.2); RED CELL DISTRIBUTION WIDTH 17.3 % (9.0-15.0); WHITE BLOOD COUNT (AUTO) 3.4 K/uL (4.8-10.8)
[2021-05-27] MEDS: AZITHROMYCIN 250 MG in NS 250 ML IV SCH (09:44)
--- NOTE | 2021-05-27 09:53 | NUR ---
MORNING MEDS Spoke to Sheila from pharmacy. Informed that witch barbara pads are not available in patient's cubby. Pharmacy says that they will bring it.
[2021-05-27 10:54] LABS: CREATININE 0.23 mg/dL (0.55-1.30)
[2021-05-27 11:07] LABS: CALCIUM 6.9 mg/dL (8.4-11.0); POTASSIUM 2.9 mmol/L (3.5-5.1)
[2021-05-27] MEDS ORDERED: POTASSIUM CHLORIDE 20 MEQ TAB.PRT.SR PO ONE (11:15)
[2021-05-27 12:00] VITALS: BP_SYST 138
--- NOTE | 2021-05-27 14:18 | NUR ---
Nutrition F/U RD reviewed pt's current EMR record including diet Hx, physician notes, nursing notes, pertinent labs/meds/procedures, care trends, and care activity. Admission Dx: Hypotension, R/O Sepsis, Colon CA w/ mets PMH: Pt w/: Drug overdose, Severe tachycardia, Hyponatremia, AMS, Metastatic Colon Cancer per MD notes. SARS-CoV-2 Ag Rapid 05/21 Negative & (PCR) Negative 05/23 Current Diet Order/Nutrition Support: Regular x5 days Subjective Info: RD rounded to pt's bedside w/ and sister present in room. Pt reported nausea and very poor appetite, confirmed by . RD suggested alternative snack options -- pt and appreciative. states pt has been having ongoing diarrhea (up to 8x/day) since chemotherapy [address] w/ pt's primary RN regarding any pending plans/procedures -- she reported that pt is waiting for bed availability at [facility]. RD relayed possibility/need for TPN/PPN support as pt mention UBW: 275# back in October 2020, and CBW: 200# -- note possible 75# unintentional wt loss/27% wt change within the past 7 months -- pt is at increased risk for malnutrition. RD weighed pt w/ bedscale: 204#. Per EMR review, PO intake average of 42% x10 meals; abd is soft and non-distended w/ active bowel sounds; last BM x1 05/27; Sanjiv scale: 15, no PIs noted. Pt is not meeting nutritional needs. Pertinent Medications: KCl/NS IV Pertinent Labs: Na 131 L, K 2.9 L, BG 87 WNL, BUN 4 L, Cre 0.23 L, TG 141 WNL, CHOL 146 WNL, ALP 178 H, ALT 10 L Height (Feet) 5 feet Height (Inches) 4.00 inches Weight (Pounds) 220 pounds -- stable since 05/23 Patient Weight 99.79 kg BEDSCALE WT: 206# (05/27) Body Mass Index 37.76 kg/m2 %IBW 183 UBW: 275# per pt report 05/27 Allen/Adjusted Body Weight 120#/ 54.5kg; Adj IBW Obesity: 145#/ 66kg Recent Weight Change possible 75# unintentional wt loss/27% wt change within the past 7 months (October-May 2021) Weight Status Obese Last BM May 23, 2021 Usual Diet At Home Regular diet w/ fruits for snacks or a granola bar. Skin Integrity Comment: Sanjiv scale: 14. NO skin issues. Per RN notes, 2+ non-pitting Bilateral leg edema. Current % PO Poor (25-49%) Estimated Energy Expenditure (kcals/day) 8515-7152 (30-35 kcal/kg Adj IBW for sepsis/CA) Estimated Protein Required (g/day) 99-132 (1.5-2 gm/kg Adj IBW for sepsis/CA) Estimated Fluid Required (l/day) 1.9-2.3 (1ml/calorie for maintenance) Problem/Etiology/Signs/Symptoms *MODIFIED* Moderate malnutrition r/t chronic illness AEB 50% less of PO intake 14# weight loss in 3 months. *ongoing Predicted suboptimal nutrient intake r/t poor appetite associated w/ chronic illness AEB PO intake meets <50% of est needs x 1 month. *ongoing Expected Outcomes/Goals Monitor appetite and PO intake w/ goal of pt meeting more than 75% of estimated nutritional needs, labs trending WNL, normal GI function, skin integrity/wt maintenance. Dietitian Recommendations * Continue regular diet * Preferred snacks in-between meals * Pt declined ONS d/t dislike * Encourage increase PO intakes * Consider TPN/PPN support Follow Up High Risk: F/U in 2-3 days
--- NOTE | 2021-05-27 14:27 | NUR ---
Dietitian Recommendations * Continue regular diet * Preferred snacks in-between meals * Pt declined ONS d/t dislike * Encourage increase PO intakes * Consider TPN/PPN support LP, RD Please refer to Nutrition F/U for details.
--- NOTE | 2021-05-27 15:30 | NUR ---
CM: JUDE: SPOKE WITH [facility] REGARDING APPLICATION OF AGREEMENT FOR TRANSFER OF PATIENT, THE FORM OF AGREEMENT WAS FAXED HERE TO THE HOSPITAL, WILL COMPLETE AND RETURN BACK TO [facility] INSTRUCTED.
--- NOTE | 2021-05-27 16:00 | NUR ---
CM: AUTHORIZATION FORM COMPLETED AND FAXED TO [facility] AT [facility] , STATED THAT ONCE SUBMITTED, IT SHOULD ONLY BE A SHORT WAIT TO CONFIRM BED NUMBER, WILL AWAIT CALL BACK.
[2021-05-27 16:29] VITALS: BP_SYST 125
--- NOTE | 2021-05-27 18:55 | NUR ---
CLOSING NOTE Patient currently resting in bed and respirations remain even and non-labored. IV site remains patent and saline-locked. Bed locked in lowest position and call light remains in reach. All needs met. Will endorse to quality process engineer RN.
[2021-05-27 20:20] VITALS: BP_SYST 134
--- NOTE | 2021-05-27 20:20 | NUR ---
Opening notes Pt AAOx4, VSS, no s/s distress noted. Pt at bedside and states he already cleaned pt and she had a BM IVF infusing at ordered rate R. chest portacath clear and patent. IV abx administered as scheduled. Pt c/o diarrhea, Lomotil 2 tabs given as needed. Call light within reach. Bed low, locked, siderails up x3. To monitor.
[2021-05-27] MEDS: CHOLESTYRAMINE/SUCROSE 4 GM/PACKET PO SCH (20:25)
[2021-05-27] MEDS: DIPHENOXYLATE HCL/ATROP SULF 2.5 MG TAB PO PRN (20:25)
[2021-05-28] VITALS: BP_SYST 132
--- NOTE | 2021-05-28 00:40 | NUR ---
Rounds Pt awake, no s/s distress noted, watching TV. IVF infusing at ordered rate R. chest portacath, clear and patent. Call light within reach. Bed low, locked, siderails up, alarm on. To monitor
[2021-05-28] MEDS: CEFEPIME 2 GM in D5W 100 ML IV SCH ×2 (03:33→11:43)
--- NOTE | 2021-05-28 04:00 | NUR ---
Rounds/pericare Pt awake, no s/s distress. Pt incontinent of urine/stool. Pericare provided. Call light within reach. To monitor.
--- NOTE | 2021-05-28 06:05 | NUR ---
Closing notes Pt asleep, no s/s distress noted. IVF infusing at ordered rate R. chest portacath clear and patent. Call light/items within reach. Bed low, locked, siderails up x3, alarm on. To endorse to AM nurse.
--- NOTE | 2021-05-28 07:45 | NUR ---
OPENING NOTE ASLEEP. NO SIGN OF PAIN OR SHORTNESS OF BREATH. IV FLUID INFUSING WELL ON RIGHT CHEST PORT-A-CATH. SAFETY CHECKS DONE. ON REVERSE ISOLATION. CALL LIGHT WITHIN REACH. WILL MONITOR.
[2021-05-28 08:00] VITALS: BP_SYST 117
[2021-05-28] MEDS: WITCH HAZEL LEAF 1 MED.PAD MED.PAD TP SCH ×3 (09:00→15:00)
[2021-05-28] MEDS: AZITHROMYCIN 250 MG in NS 250 ML IV SCH (09:24)
[2021-05-28] MEDS: KCL 20 mEq in NS 1000 mL 1,000 ML IV SCH ×2 (09:24→17:00)
[2021-05-28] MEDS: CHOLESTYRAMINE/SUCROSE 4 GM/PACKET PO SCH (09:24)
--- NOTE | 2021-05-28 09:45 | NUR ---
LOMOTIL PRN PATIENT REPORTED THAT SHE IS STILL HAVING DIARRHEA - ALTHOUGH IT IS MUCH MORE FORMED NOW. THE LAST ONE WAS AT 330 AM TODAY BUT PATIENT STILL WANTS HER LOMOTIL. ADMINISTERED ORDERED.
[2021-05-28] MEDS: DIPHENOXYLATE HCL/ATROP SULF 2.5 MG TAB PO PRN (09:49)
[2021-05-28 10:16] LABS: BASOPHILS % (AUTO) 0.5 % (0.0-2.0); EOSINOPHILS % (AUTO) 0.4 % (0.0-4.0); HEMATOCRIT 27.9 % (36-48); HEMOGLOBIN 9.4 g/dL (12.0-16.0); LYMPHOCYTES % (AUTO) 24.5 % (20.5-51.5); MEAN CORPUSCULAR HEMOGLOBIN 29 pg (27-31); MEAN CORPUSCULAR HGB CONC 34 % (32-36); MEAN CORPUSCULAR VOLUME 86 fL (79.0-98.0); MONOCYTES # (AUTO) 0.9 K/uL (0.0-1.0); MONOCYTES % (AUTO) 22.2 % (1.7-9.3); NEUTROPHILS # (AUTO) 2.2 K/uL (1.8-7.7); NEUTROPHILS % (AUTO) 52.4 % (40.0-70.0); PLATELET COUNT (AUTO) 154 K/uL (130-430); RED BLOOD CELL COUNT(AUTO) 3.26 MIL/uL (4.2-6.2); RED CELL DISTRIBUTION WIDTH 16.9 % (9.0-15.0); WHITE BLOOD COUNT (AUTO) 4.2 K/uL (4.8-10.8)
[2021-05-28 10:17] LABS: CALCIUM 7.4 mg/dL (8.4-11.0); CREATININE 0.23 mg/dL (0.55-1.30)
[2021-05-28 11:37] VITALS: BP_SYST 123
[2021-05-28] MEDS ORDERED: FER300L PO (14:07)
[2021-05-28] MEDS ORDERED: APIX5TAB4 PO (14:07)
[2021-05-28] MEDS ORDERED: CYCL10TA24 PO (14:07)
[2021-05-28] MEDS ORDERED: CYM30 PO (14:08)
[2021-05-28] MEDS ORDERED: MAGN400T10 PO (14:08)
[2021-05-28] MEDS ORDERED: POTASSIUM CHLORIDE 20 MEQ TAB.PRT.SR PO ONE (14:15)
--- NOTE | 2021-05-28 14:45 | NUR ---
RAPID TEST COVID TEST SAMPLE BROUGHT TO LAB.
[2021-05-28] MEDS ORDERED: POTASSIUM CHLORIDE 40 MEQ in NS 250 ML IV ONE (15:00)
[2021-05-28 16:00] VITALS: BP_SYST 121
--- NOTE | 2021-05-28 16:00 | NUR ---
CM: COVID-19 TEST RESULTS FAXED TO TRUMAN AT [facility] [place], STATES ONCE COPY OF CURRENT TEST RESULTS RECEIVED, WILL CALL WITH BED THIS EVENING, PACKET TAKEN TO FLOOR, NURSE DANNA AWARE.
--- NOTE | 2021-05-28 17:50 | NUR ---
BED AVAIL[place] [facility] [place] SAID [place]IENT CAN GO TO [place] [facility] BED 1. PATIENT IS AWARE. PATIENT CALLED .
[2021-05-28 18:40] VITALS: BP_SYST 118
--- NOTE | 2021-05-28 18:40 | NUR ---
REPORT GIVEN REPORT GIVEN TO LYNN MU[facility]OZ [facility] [place].
--- NOTE | 2021-05-28 20:20 | NUR ---
D/C Patient [facility] here. Patient given medication reconciliation form and D/C instructions. Exit Care provided. Patient verbalized understanding. MD discussed with patient the results and treatment provided. Patient in stable condition, ID band removed. R. chest portacath capped, dressing C/D/I. All belongings sent with patient. 2 bags of medications returned to pt. [place] [facility] [place]
== END 2021-05-28 20:20 | disposition short-term general hospital (02) | DRG 871 ==
LOC: SED 16:24 → STU 18:36
PROVIDERS: ADMIT Internal Medicine; ATTEND Internal Medicine
PROC: 30233N1 Transfusion of Nonautologous Red Blood Cells into Peripheral Vein, Percutaneous Approach (ICD-10-PCS; principal; 2021-05-22)
DX: A41.9 Sepsis, unspecified organism (principal); J18.9 Pneumonia, unspecified organism; E43 Unspecified severe protein-calorie malnutrition; G92.9 Unspecified toxic encephalopathy; E87.1 Hypo-osmolality and hyponatremia; C18.9 Malignant neoplasm of colon, unspecified; C78.7 Secondary malignant neoplasm of liver and intrahepatic bile duct; N39.0 Urinary tract infection, site not specified; C78.6 Secondary malignant neoplasm of retroperitoneum and peritoneum; C79.31 Secondary malignant neoplasm of brain; C79.51 Secondary malignant neoplasm of bone; D61.818 Other pancytopenia; T50.901A Poisoning by unspecified drugs, medicaments and biological substances, accidental (unintentional), initial encounter; E87.6 Hypokalemia; Z20.822 Contact with and (suspected) exposure to COVID-19; K64.9 Unspecified hemorrhoids; D70.9 Neutropenia, unspecified; R50.81 Fever presenting with conditions classified elsewhere; G93.9 Disorder of brain, unspecified; K60.2 Anal fissure, unspecified; Z88.1 Allergy status to other antibiotic agents; Z88.5 Allergy status to narcotic agent; Z79.899 Other long term (current) drug therapy; Z85.038 Personal history of other malignant neoplasm of large intestine; Y92.89 Other specified places as the place of occurrence of the external cause
CPT/HCPCS: 36415; 70450-TC; 71045; 71250-TC; 76376; 80048; 80053; 80061; 81000; 82009; 82272; 82378; 82550; 82607; 82728; 82746; 82962; 83540; 83550; 83605; 83930; 83935; 84443; 84484; 85007; 85025; 85027; 85044; 85610-TC; 85730-TC; 86886; 86900; 86901; 86920; 87040-TC; 93005; 96361; 96374; 99285; G0378; J0456; J0692; J1447; J2543; J3370; J3480; J7050; J7060; P9021; U0003